=== PATIENT | female | born 1945 | race Caucasian/White ===

== ENCOUNTER → 2019-04-05 | Day surgery (SDC) | payer BC, MEDICARE ==
[~2019-04-05] MED LIST: BUPIVACAINE HCL 0.5 % INJ/PF 30 ML SDV ONE; LIDOCAINE 1% INJ-PF (10 MG/ML) 30 ML SDV ONE; METHYLPREDNISOLONE ACETATE INJ 80 MG/1 ML VIAL ONE
--- NOTE | 2019-04-05 14:10 | RADIOLOGY REPORT (SQ) ---
EXAM DESCRIPTION: INJECT/ASPIR HIP/SHLDR/KNEE; FLUORO/NEEDLE PLACEMENT COMPLETED DATE/TIME: 04/05/2019 1:46 pm REASON FOR STUDY: UNILATERAL PRIMARY OSTEOARTHRITIS, RIGHT HIP M16.11 UNILATERAL PRIMARY OSTEOARTHR ITIS, RIGHT HIP COMPARISON: None. FLUOROSCOPY TIME: 7 seconds. 1 images saved to PACS. LIMITATIONS: None. PROCEDURE: SITE OF INJECTION: Right hip. LOCALIZING CONTRAST TYPE AND DOSE: 1 mL Omnipaque. MEDICATION TYPE AND DOSE: 80 mg Depo-Medrol and 4 mL Sensorcaine. Using local anesthesia and sterile technique with fluoroscopic guidance, the needle was advanced into the joint. Iodinated contrast was injected to verify intraarticular placement. This was followed by therapeutic injection of the indicated medications. The needle was removed. There were no immediat e complications. Preprocedure pain level: 3/5. Postprocedure pain level: 1/5. IMPRESSION: THERAPEUTIC INJECTION OF THE RIGHT HIP JOINT ABOVE. COMMENT: Patient medication list reviewed: Yes- Quality ID# [id number]:Eligible professional attests to doc umenting in the medical record they obtained, updated, or reviewed the patient's current medications. . Quality ID 145: Final reports for procedures using fluoroscopy that document radiation exposure alia luciano, or exposure time and number of fluorographic images (if radiation exposure indices are not avail able) TECHNICAL DOCUMENTATION: JOB ID: [id number] [employer]- All Rights Reserved Reading location - IP/workstation name: [email or web address]
== END ==
LOC: RAD 12:40
PROVIDERS: ATTEND Family Medicine
DX: M16.11 Unilateral primary osteoarthritis, right hip (principal)
CPT/HCPCS: 20610; 77002; J3490; J1040

== ENCOUNTER 2019-09-29 03:11 | Emergency (ER) | payer MEDICARE, BC ==
[2019-09-29] MEDS ORDERED: ACETAMINOPHEN 325 MG TABLET PO ONE (05:00)
[2019-09-29] MEDS ORDERED: LIDOCAINE 5% (700 MG) TRANSDERMAL ADH..PATCH TP ONE (05:01)
--- NOTE | 2019-09-29 05:16 | ER Document Report ---
ED General - General Chief Complaint: Back Pain Stated Complaint: PAIN LEFT HIP Time Seen by Provider: 09/29/19 04:34 Primary Care Provider: JH REYES MD [ACTIVE STAFF] - Follow up as needed Notes: 74-year-old female presenting today with left hip pain worsening in the last 24 hours. States that she was seen by [place] [facility] on Tuesday and diagnosed with sciatica. States that she had x-rays performed and the only pertinent finding was a prior fractured tailbone. Was prescribed Flexeril and prednisone. States that those did help alleviate her pain until when she started to have more intermittent breakthrough pain. Tuesday she was unable to have any pain relief with the Flexeril for the prednisone. Pain radiates down the back of her leg to her knee. Patient is ambulatory in the room. Is more comfortable not laying down. Pain is worse across left SI joint. Patient reports that she needs to get some rest as she has been up since 8:00 on due to loss of her [id number]. Has a history of thyroid cancer and multiple surgeries to include sinus surgery partial hysterectomy and bilateral shoulder surgery denies any cardiac or kidney disease. Does note that she has had increased frequency and decreased urinary output. Denies any saddle anesthesia or loss of bowel or bladder control. No fevers, chills, or additional symptoms reported TRAVEL OUTSIDE OF THE [place] IN LAST 30 DAYS: No - Related Data Allergies/Adverse Reactions: Sulfa (Sulfonamide Antibiotics) Allergy (Verified 11/05/13 11:12) Home Medications: Flexiril, Zolpidine, Levothyroxine Past Medical History - Social History Smoking Status: Never Smoker Frequency of alcohol use: None Drug Abuse: None Family History: Reviewed & Not Pertinent, CAD, DM Patient has homicidal ideation: No - Past Medical History Cardiac Medical History: Denies: Hx Coronary Artery Disease, Hx Heart Attack, Hx Hypertension Pulmonary Medical History: Denies: Hx Asthma, Hx Bronchitis, Hx COPD, Hx Pneumonia Neurological Medical History: Denies: Hx Cerebrovascular Accident, Hx Seizures Malignancy Medical History: Reports: Other - thyroid cancer GI Medical History: Reports: None Musculoskeletal Medical History: Denies Hx Arthritis, Reports Hx Sciatica Skin Medical History: Reports None Psychiatric Medical History: Denies: Hx Depression Past Surgical History: Reports: Hx Cholecystectomy, Hx Hysterectomy - Cervical cancer, Hx Oral Surgery, Hx Orthopedic Surgery - Bilateral shoulders, left knee, fractured tib fib, Hx Thyroid Surgery - Thyroid cancer - Immunizations Hx Diphtheria, Pertussis, Tetanus Vaccination: Yes Hx Pneumococcal Vaccination: 04/25/11 Review of Systems - Review of Systems Constitutional: No symptoms reported EENT: No symptoms reported Cardiovascular: No symptoms reported Respiratory: No symptoms reported Gastrointestinal: No symptoms reported Genitourinary: No symptoms reported Female Genitourinary: See HPI Musculoskeletal: See HPI Skin: No symptoms reported Physical Exam - Vital signs Vitals: Temp 98.0 F 09/29/19 03:18 Interpretation: No: Hypotensive, Bradycardic, Tachycardic, Hypoxic, Febrile - Notes Notes: Adult General: GENERAL: Alert, interacts well. No acute distress HEAD: Normocephalic, atraumatic EYES: Pupils equal, round. Extraocular movements intact. ENT: Airway patent. Nares patent. NECK: Full range of motion. Supple. Trachea midline. No lymphadenopathy. GENITOURINARY: Deferred EXTREMITIES: Pain with hip flexion and internal rotation. Mild tenderness at hip joint and along greater trochanter. Moves all 4 extremities spontaneously. No edema, normal radial and dorsal pedis pulses bilaterally. No cyanosis. BACK: Tenderness along left SI joint. No cervical, thoracic, lumbar midline tenderness. No saddle anesthesia, normal distal neurovascular exam. Moves all extremities with full range of motion. NEUROLOGICAL: Alert and oriented x3. Normal speech. Strength 5/ 5 in all extremities. PSYCH: Normal affect, normal mood. SKIN: Warm, dry, normal turgor. No rashes or lesions noted. Course - Re-evaluation Re-evalutation: 09/29/19 06:24 Patient with worsening left hip pain x 24 hours. Flexeril and prednisone helped alleviate her pain for a couple of days but her pain has since exacerbated. Pain is along the left SI joint and radiates down her posterior thigh consistent with sciatica. Patient also reports anterior hip pain with flexion and internal rotation. Patient notes that Tylenol and lidocaine patch provided no relief. Patient is anxious to go home and sleep and get some pain relief. She states that she does not have anyone that can come pick her up, and also reports that she cannot get a cab to go home. She says she lives in [facility]. I am not comfortable providing patient narcotics to take while in the ED without having a ride home. Will provide her [place] dispensed in the ER to take at home. Counseled patient on this medication and instructed to avoid driving after this medication. Patient's CT scan resulted showing no acute findings. She can return to the emergency department if she has worsening pain or development of new symptoms. Patient verbalizes understanding of instructions. - Vital Signs Vital signs: Temp Pulse Resp BP Pulse Ox 98.6 F 78 16 141/80 H 98 09/29/19 03:21 09/29/19 03:21 09/29/19 03:21 09/29/19 03:21 09/29/19 03:21 Discharge - Discharge Clinical Impression: Hip pain, left Condition: Stable Disposition: HOME, SELF-CARE Instructions: Ice Packs ([facility]), Oral Narcotic Medication ([facility]) Additional Instructions: Take medication as prescribed. Please do not drive after taking medication. Return to the emergency department if you develop worsening symptoms or development new symptoms. Referrals: JH REYES MD [ACTIVE STAFF] - Follow up as needed
[2019-09-29] MEDS ORDERED: HYDROCODONE/ACETAMINOPHEN 5-325 MG (6 TAB/ER DISP) PO PRN (06:16)
--- NOTE | 2019-09-29 06:26 | RADIOLOGY REPORT (SQ) ---
CT left hip without contrast on 09/29/2019 5:28 AM CLINICAL INDICATION: Left hip pain TECHNIQUE: Multiple axial images are obtained throughout the left hip without the administration of contrast. Sagittal and coronal reformatted images are also performed and reviewed. This exam was performed according to our departmental dose-optimization program, which includes automated exposure control, adjustment of the mA and/or kV according to patient size and/or use of iterative reconstruction technique. Total DLP is 135.39 mGy*cm. COMPARISON: None FINDINGS: The hip is well located. Facet arthropathy is noted in the lower lumbar spine. There are no acute fracture lines. The patient is status post hysterectomy. No other bony or soft tissue abnormality is noted by CT. IMPRESSION: No acute abnormality.
[2019-09-29 06:44] VITALS: BP 141/74
== END 2019-09-29 06:44 | disposition home or self-care (01) ==
LOC: ER 03:11
DX: M25.552 Pain in left hip (principal); M54.9 Dorsalgia, unspecified; M25.562 Pain in left knee; Z79.899 Other long term (current) drug therapy; Z88.2 Allergy status to sulfonamides
CPT/HCPCS: 99283; 73700; A9270 ×3

== ENCOUNTER → 2020-01-29 | Day surgery (SDC) | payer MEDICARE, BC ==
[~2020-01-29] MED LIST changes: -LIDOCAINE 1% INJ-PF (10 MG/ML) 30 ML SDV ONE; +METHYLPREDNISOLONE ACETATE INJ 40 MG/1 ML ML ONE; -METHYLPREDNISOLONE ACETATE INJ 80 MG/1 ML VIAL ONE
--- NOTE | 2020-01-29 14:34 | RADIOLOGY REPORT (SQ) ---
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 FLUOROSCOPY TIME: 1.0 minutes 2 images saved to PACS. LIMITATIONS: None. PROCEDURE: SITE OF INJECTION: Right SI joint LOCALIZING CONTRAST TYPE AND DOSE: 1 mL Omnipaque 300 MEDICATION TYPE AND DOSE: 40 mg Depo-Medrol, 1 mL 0.5% bupivacaine. Using local anesthesia and sterile technique with fluoroscopic guidance, the needle was advanced into the joint. Iodinated contrast was injected to verify intraarticular placement. This was followed by therapeutic injection of the indicated medications. The needle was removed. There were no immediat e complications. Preprocedure pain level: 4/10. Postprocedure pain level: 0/10. IMPRESSION: THERAPEUTIC INJECTION OF THE RIGHT SACROILIAC JOINT ABOVE. COMMENT: Patient medication list reviewed: Yes- Quality ID# [id number]:Eligible professional attests to doc umenting in the medical record they obtained, updated, or reviewed the patient's current medications. . Quality ID 145: Final reports for procedures using fluoroscopy that document radiation exposure alia luciano, or exposure time and number of fluorographic images (if radiation exposure indices are not avail able) TECHNICAL DOCUMENTATION: JOB ID: [id number] 2010 [employer]- All Rights Reserved Reading location - IP/workstation name: [email or web address] [id number]
--- NOTE | 2020-01-29 14:34 | RADIOLOGY REPORT (SQ) ---
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 FLUOROSCOPY TIME: 1.0 minutes 2 images saved to PACS. LIMITATIONS: None. PROCEDURE: SITE OF INJECTION: Right SI joint LOCALIZING CONTRAST TYPE AND DOSE: 1 mL Omnipaque 300 MEDICATION TYPE AND DOSE: 40 mg Depo-Medrol, 1 mL 0.5% bupivacaine. Using local anesthesia and sterile technique with fluoroscopic guidance, the needle was advanced into the joint. Iodinated contrast was injected to verify intraarticular placement. This was followed by therapeutic injection of the indicated medications. The needle was removed. There were no immediat e complications. Preprocedure pain level: 4/10. Postprocedure pain level: 0/10. IMPRESSION: THERAPEUTIC INJECTION OF THE RIGHT SACROILIAC JOINT ABOVE. COMMENT: Patient medication list reviewed: Yes- Quality ID# [id number]:Eligible professional attests to doc umenting in the medical record they obtained, updated, or reviewed the patient's current medications. . Quality ID 145: Final reports for procedures using fluoroscopy that document radiation exposure alia luciano, or exposure time and number of fluorographic images (if radiation exposure indices are not avail able) TECHNICAL DOCUMENTATION: JOB ID: [id number] 2010 [employer]- All Rights Reserved Reading location - IP/workstation name: [email or web address] [id number]
== END ==
LOC: RAD 12:55
PROVIDERS: ATTEND Family Medicine
DX: M45.1 Ankylosing spondylitis of occipito-atlanto-axial region (principal); M46.1 Sacroiliitis, not elsewhere classified
CPT/HCPCS: 20610; 77002; J3490; J1030